=== PATIENT | male | born 1975 | race Caucasian/White ===

== ENCOUNTER → 2020-09-23 | Outpatient (CLI) | payer OTHER | LOC: HEART 5 10:05 | DX: J44.9 Chronic obstructive pulmonary disease, unspecified (principal); F17.210 Nicotine dependence, cigarettes, uncomplicated; R94.2 Abnormal results of pulmonary function studies | CPT/HCPCS: 94060; 94729 ==

== ENCOUNTER → 2021-01-14 | Outpatient (CLI) | payer OTHER | LOC: SLEEP 21:30 | DX: G47.33 Obstructive sleep apnea (adult) (pediatric) (principal) | CPT/HCPCS: 95810 ==

== ENCOUNTER → 2021-02-21 | Outpatient (CLI) | payer OTHER | LOC: EXRD 09:00 | DX: J44.9 Chronic obstructive pulmonary disease, unspecified (principal) | CPT/HCPCS: 71046 ==

== ENCOUNTER → 2021-07-10 | Outpatient (CLI) | payer OTHER | LOC: HEART 5 07-09 10:00 | DX: R07.9 Chest pain, unspecified (principal); I26.99 Other pulmonary embolism without acute cor pulmonale; R06.02 Shortness of breath; I45.10 Unspecified right bundle-branch block | CPT/HCPCS: 93306 ==

== ENCOUNTER → 2021-08-26 | Outpatient (CLI) | payer OTHER ==
[2021-08-26 12:35] LABS: HEMOGLOBIN 15.3 gm/dl (14.0-17.5); RED BLOOD COUNT 5.3 M/UL (4.20-5.50); WHITE BLOOD COUNT 6.4 K/UL (4.5-11.0)
[2021-08-26 13:05] LABS: BUN/CREATININE RATIO 9 (0-10)
== END ==
LOC: LAB 11:45
PROVIDERS: Internal Medicine Interventional Cardiology
DX: J44.9 Chronic obstructive pulmonary disease, unspecified (principal); R06.02 Shortness of breath; I26.99 Other pulmonary embolism without acute cor pulmonale; R07.9 Chest pain, unspecified; F41.9 Anxiety disorder, unspecified; I47.9 Paroxysmal tachycardia, unspecified; J41.0 Simple chronic bronchitis; N52.9 Male erectile dysfunction, unspecified
CPT/HCPCS: 36415; 80048; 85025; 85610; 85730; 93005

== ENCOUNTER 2021-08-30 13:54 | Observation (INO) | payer OTHER ==
[~2021-08-30] VITALS: Ht 175.3 cm; Wt 113.4 kg
[2021-08-30 15:53] LABS: HEMOGLOBIN 15.7 gm/dl (14.0-17.5); RED BLOOD COUNT 5.41 M/UL (4.20-5.50); WHITE BLOOD COUNT 7.5 K/UL (4.5-11.0)
[2021-08-30 16:17] LABS: BUN/CREATININE RATIO 7 (0-10)
[2021-08-30] MEDS ORDERED: NEURONTIN300 MG PO (18:03)
[2021-08-30] MEDS ORDERED: BUPRENORPHIN-N1 EACH SL (18:03)
[2021-08-30] MEDS ORDERED: WELLBUTRIN XL150 MG PO (18:03)
[2021-08-30] MEDS ORDERED: ISOSORBIDE MONO30 MG PO (18:04)
[2021-08-30] MEDS ORDERED: METOPROLOL TART25 MG PO (18:04)
[2021-08-30] MEDS ORDERED: KLONOPIN0.5 MG PO (18:04)
[2021-08-30] MEDS ORDERED: IBU800 MG PO (18:05)
[2021-08-30] MEDS ORDERED: ELIQUIS5 MG PO (18:05)
[2021-08-30] MEDS ORDERED: AMLODIPINE BESY10 MG PO (18:06)
[2021-08-30] MEDS ORDERED: ZESTORETIC 20-1 EACH PO (18:06)
[2021-08-31 06:41] LABS: HEMOGLOBIN 14.6 gm/dl (14.0-17.5); RED BLOOD COUNT 5.07 M/UL (4.20-5.50)
[2021-08-31 07:09] LABS: BUN/CREATININE RATIO 11 (0-10)
[2021-09-01 02:56] LABS: HEMOGLOBIN 13.8 gm/dl (14.0-17.5); RED BLOOD COUNT 4.88 M/UL (4.20-5.50); WHITE BLOOD COUNT 7.7 K/UL (4.5-11.0)
[2021-09-01 03:18] LABS: BUN/CREATININE RATIO 13 (0-10)
[2021-09-01] MEDS ORDERED: ISOSORBIDE MONO30 MG PO (12:29)
[2021-09-01] MEDS ORDERED: ATORVASTATIN CA20 MG PO (12:29)
[2021-09-01] MEDS ORDERED: NITROGLYCERIN0.4 MG SL (12:29)
[2021-09-01] MEDS ORDERED: ASPIRIN81 MG PO (12:29)
== END 2021-09-01 16:11 | disposition home or self-care (01) ==
LOC: ER1 13:54 → CDU 17:49 → MED SURG 4 19:00
PROVIDERS: Family Medicine; Physician Assistant Medical; ADMIT Internal Medicine
PROC: B2111ZZ Fluoroscopy of Multiple Coronary Arteries using Low Osmolar Contrast (ICD-10-PCS; principal; 2021-09-01)
DX: I20.0 Unstable angina (principal); I10 Essential (primary) hypertension; I77.89 Other specified disorders of arteries and arterioles; J44.9 Chronic obstructive pulmonary disease, unspecified; F11.20 Opioid dependence, uncomplicated; F41.9 Anxiety disorder, unspecified; G89.29 Other chronic pain; M54.9 Dorsalgia, unspecified; Z86.79 Personal history of other diseases of the circulatory system; Z79.01 Long term (current) use of anticoagulants; Z79.899 Other long term (current) drug therapy; Z87.891 Personal history of nicotine dependence; Z86.711 Personal history of pulmonary embolism
CPT/HCPCS: 36415; 71045; 80048; 80053; 80061; 82550; 82553; 83036; 83735; 84484; 85025; 85027; 93005; 96372; 96374; 96375; 96376; 99152; 99285; C1769; C1887; C1894; G0378; J1200; J1644; J1650; J2250; J2270; J2405; J2930; J3010; J7040; Q9967